=== PATIENT | female | born 1980 | race Caucasian/White ===

== ENCOUNTER 2017-11-19 08:29 | Emergency (ER) | payer OTHER ==
[2017-11-19 08:29] VITALS: BMI 34.7
[2017-11-19 08:32] VITALS: RESP 18; TEMP 97.4; O2SAT 100
[2017-11-19 10:15] VITALS: BP 140/94; PULSE 62
--- NOTE | 2017-11-19 10:28 | C.PDOC ---
<Kristel Mackenzie - Last Filed: 11/19/17 10:24> <Zoraida Jameson - Last Filed: 11/19/17 10:50> Time Seen by Provider: 11/19/17 08:37 Chief Complaint (Nursing): Back Pain Past Medical History Family History: States: Unknown Family Hx - Social History Hx Tobacco Use: No Hx Alcohol Use: No Hx Substance Use: No - Immunization History Hx Tetanus Toxoid Vaccination: No Hx Influenza Vaccination: No Hx Pneumococcal Vaccination: No <Kristel Mackenzie - Last Filed: 11/19/17 10:24> Vital Signs: Last Vital Signs Temp 97.4 F L 11/19/17 10:14 Pulse 62 11/19/17 10:14 Resp 18 11/19/17 10:14 BP 140/94 H 11/19/17 10:14 Pulse Ox 100 11/19/17 10:27 ED Course And Treatment O2 Sat by Pulse Oximetry: 100 <Kristel Mackenzie - Last Filed: 11/19/17 10:24> Disposition <Kristel Mackenzie - Last Filed: 11/19/17 10:24> Counseled Patient/Family Regarding: Diagnosis, Need For Followup, Rx Given - Disposition Disposition Time: 10:50 - POA Present On Arrival: None <GisellZoraida Alan - Last Filed: 11/19/17 10:50> - Disposition Referrals: [facility] [Outside] [facility] [Outside] Disposition: HOME/ ROUTINE Condition: STABLE Additional Instructions: Follow up with clinic Prescriptions: Cyclobenzaprine [Flexeril] 5 mg PO BID PRN #10 tab PRN Reason: Pain, Mild (1-3) Naproxen [Naprosyn] 1 tab PO BID PRN #25 tab PRN Reason: Pain Instructions: Low Back Pain in Adults Forms: [facility] (Turkish) - Clinical Impression Clinical Impression: Low back strain, Sciatica
--- NOTE | 2017-11-19 12:52 | C.PDOC ---
History Of Present Illness 37-year-old female, presents to the emergency department with complaints of back pain associated with right leg pain x2 days. Patient has a Hx of sciatica, states she took Aspirin yesterday. Denies nausea/vomiting, fevers, chills, shortness of breath or any other associated symptoms. No other complaints at this time. Time Seen by Provider: 11/19/17 08:37 Chief Complaint (Nursing): Back Pain History Per: Patient History/Exam Limitations: no limitations Past Medical History Reviewed: Historical Data, Nursing Documentation, Vital Signs Vital Signs: Last Vital Signs Temp 97.4 F L 11/19/17 10:14 Pulse 62 11/19/17 10:14 Resp 18 11/19/17 10:14 BP 140/94 H 11/19/17 10:14 Pulse Ox 100 11/19/17 12:52 Family History: States: No Known Family Hx - Social History Hx Tobacco Use: No Hx Alcohol Use: No Hx Substance Use: No - Immunization History Hx Tetanus Toxoid Vaccination: No Hx Influenza Vaccination: No Hx Pneumococcal Vaccination: No Review Of Systems Constitutional: Negative for: Fever, Chills Respiratory: Negative for: Shortness of Breath Gastrointestinal: Negative for: Nausea, Vomiting Musculoskeletal: Positive for: Back Pain Physical Exam - Physical Exam Appears: Non-toxic, No Acute Distress Skin: Normal Color, Warm, Dry, No Rash Head: Normacephalic Eye(s): bilateral: PERRL Nose: Normal Oral Mucosa: Moist Lips: Normal Appearing Neck: Normal ROM Chest: Symmetrical Cardiovascular: Rhythm Regular, No Murmur Respiratory: Normal Breath Sounds, No Accessory Muscle Use Back: Paraspinal Tenderness (right lumbar), Straight Leg Raising Extremity: Normal ROM, No Deformity Neurological/Psych: Oriented x3, Normal Speech ED Course And Treatment O2 Sat by Pulse Oximetry: 100 (RA) Pulse Ox Interpretation: Normal Disposition - Disposition Referrals: [facility] [Outside] [facility] [Outside] Disposition: HOME/ ROUTINE Disposition Time: 10:50 Condition: STABLE Additional Instructions: Follow up with clinic Prescriptions: Cyclobenzaprine [Flexeril] 5 mg PO BID PRN #10 tab PRN Reason: Pain, Mild (1-3) Naproxen [Naprosyn] 1 tab PO BID PRN #25 tab PRN Reason: Pain Instructions: Low Back Pain in Adults Forms: [employer] (Polish) - Clinical Impression Clinical Impression: Low back strain, Sciatica - Scribe Statement The provider has reviewed the documentation as recorded by the Scribe (Coretta Carrasco) All medical record entries made by the Scribe were at my direction and personally dictated by me. I have reviewed the chart and agree that the record accurately reflects my personal performance of the history, physical exam, medical decision making, and the department course for this patient. I have also personally directed, reviewed, and agree with the discharge instructions and disposition.
== END 2017-11-19 11:09 | disposition home or self-care (01) ==
LOC: C.ER 08:29
DX: M54.30 Sciatica, unspecified side (principal); S39.012A Strain of muscle, fascia and tendon of lower back, initial encounter; X58.XXXA Exposure to other specified factors, initial encounter; Y92.9 Unspecified place or not applicable
CPT/HCPCS: 96372; 99283; J1885